=== PATIENT | female | born 1990 | race Caucasian/White ===

== ENCOUNTER 2017-08-16 20:13 | Emergency (ER) | payer BC ==
[~2017-08-16] VITALS: Ht 175.3 cm; Wt 56.7 kg
[2017-08-16 20:30] VITALS: BP 126/80
== END 2017-08-16 21:07 | disposition home or self-care (01) ==
LOC: ER 20:17
DX: S80.212A Abrasion, left knee, initial encounter (principal); S60.512A Abrasion of left hand, initial encounter; S60.511A Abrasion of right hand, initial encounter; V29.49XA Motorcycle driver injured in collision with other motor vehicles in traffic accident, initial encounter; Y93.89 Activity, other specified; Y92.413 State road as the place of occurrence of the external cause; Y99.8 Other external cause status
CPT/HCPCS: A4606; Z7610